=== PATIENT | male | born 1975 | race Caucasian/White ===

== ENCOUNTER 2016-12-27 10:33 | Emergency (ER) | payer SELFPAY ==
[~2016-12-27] VITALS: Ht 185.4 cm; Wt 185.0 kg
[~2016-12-27 10:33] MED LIST: CEPH500C3 PO; HYDR10SO PO; LITH300 PO
[2016-12-27 10:45] VITALS: BP 141/94; PULSE 104; RESP 20; TEMP 98; O2SAT 95
[2016-12-27 10:52] VITALS: BP 148/77; PULSE 105; RESP 18; O2SAT 97
--- NOTE | 2016-12-27 11:28 | PD ---
HPI Chief Complaint: Psychiatric Symptoms Time Seen by Provider: 11:25 Travel History International Travel<30 days: No Contact w/Intl Traveler<30days: No Traveled to known affect area: No History of Present Illness HPI 41-year-old male presents to the emergency Department a [place] act by local police. Apparently, the patient got into an argument with father. The police were called and the patient made comments about self-harm. Patient does admit to suicidal thoughts. He does not have a plan at this time. He states that in the past, he has overdosed on pills. He denies any attempt to hurt himself at this time. Patient states that he was drinking alcohol this morning, but will not tell me how much. He also admits to snorting cocaine. He denies any IVDU. Patient states that he feels alone and this brought and has no friends and no job. He would like to live a normal life, but cannot seem to get to that point. The patient reports a history of schizoaffective disorder. He states that he was on psychiatric medications approximately 2 years ago. He believes these were Zyprexa and lithium, but is not sure. He states he is not taking any medications at this time. He denies any other medical problems. He states he is also depressed about his recent weight gain. Patient denies any medical complaints at this time. PFSH Past Medical History Arthritis: Yes (HANDS) Asthma: No Autoimmune Disease: No Blood Disorders: No Bipolar Disorder: Yes Anxiety: Yes Depression: Yes Cancer: No Cardiovascular Problems: No Chemotherapy: No COPD: Yes Cerebrovascular Accident: No Diabetes: No Diminished Hearing: No Endocrine: No Gastrointestinal Disorders: No Glaucoma: No Genitourinary: No Headaches: Yes Immune Disorder: No Implanted Vascular Access Dvce: No Insomnia: Yes Kidney Stones: No Musculoskeletal: Yes Neurologic: No Psychiatric: Yes (schizoaffective disorder) Reproductive: No Respiratory: No Radiation Therapy: No Renal Failure: No Seizures: No Sleep Apnea: No Thyroid Disease: Yes (PT STATES " THEY TOLD ME I HAVE THYROID , I LOST 70 LBS. ") ?: Not Past Surgical History AICD: No Arteriovenous Shunt: No Ear Surgery: No Endocrine Surgery: No Eye Surgery: No Genitourinary Surgery: No Gynecologic Surgery: No Insulin Pump: No Joint Replacement: No Oral Surgery: No Pacemaker: No Other Surgery: No Social History Alcohol Use: Yes (Frequent drinker) Tobacco Use: Yes (1 ppd) Substance Use: Yes (+cocaine every so often) Allergies-Medications (Allergen,Severity, Reaction): Coded Allergies: No Known Allergies (Verified , 12/27/16) Reported Meds & Prescriptions Reported Meds & Active Scripts Active Review of Systems Except as stated in HPI: all other systems reviewed are Neg Physical Exam Narrative GENERAL: Well-nourished, well-developed obese male patient, afebrile. SKIN: Focused skin assessment warm/dry. HEAD: Normocephalic. Atraumatic. EYES: No scleral icterus. No injection or drainage. NECK: Supple, trachea midline. No JVD or lymphadenopathy. CARDIOVASCULAR: Regular rate and rhythm without murmurs, gallops, or rubs. RESPIRATORY: Breath sounds equal bilaterally. No accessory muscle use. Lungs sounds are clear to auscultation. GASTROINTESTINAL: Abdomen soft, non-tender, nondistended. MUSCULOSKELETAL: No cyanosis, or edema. PSYCHIATRIC: No delusional thought processes. No hallucinations. Data Data Last Documented VS Vital Signs Date Time Temp Pulse Resp B/P Pulse Ox O2 Delivery O2 Flow Rate FiO2 12/27/16 10:52 105 18 148/77 97 Room Air 12/27/16 10:45 98.0 Orders Complete Blood Count With Diff (12/27/16 11:24) Comprehensive Metabolic Panel (12/27/16 11:24) Psych Screen (12/27/16 11:24) Drug Screen, Random Urine (12/27/16 11:24) Alcohol (Ethanol) (12/27/16 11:24) Salicylates (Aspirin) (12/27/16 11:24) Tylenol (Acetaminophen) (12/27/16 11:24) Labs Laboratory Tests Test 12/27/16 11:25 White Blood Count 9.3 TH/MM3 Red Blood Count 5.27 MIL/MM3 Hemoglobin 15.7 GM/DL Hematocrit 43.9 % Mean Corpuscular Volume 83.4 FL Mean Corpuscular Hemoglobin 29.9 PG Mean Corpuscular Hemoglobin 35.8 % Concent Red Cell Distribution Width 13.1 % Platelet Count 192 TH/MM3 Mean Platelet Volume 10.0 FL Neutrophils (%) (Auto) % Lymphocytes (%) (Auto) % Monocytes (%) (Auto) % Eosinophils (%) (Auto) % Basophils (%) (Auto) % Neutrophils # (Auto) TH/MM3 Lymphocytes # (Auto) TH/MM3 Monocytes # (Auto) TH/MM3 Eosinophils # (Auto) TH/MM3 Basophils # (Auto) TH/MM3 CBC Comment AUTO DIFF Differential Total Cells 100 Counted Neutrophils % (Manual) 63 % Lymphocytes % 20 % Monocytes % 12 % Eosinophils % 5 % Neutrophils # (Manual) 5.9 TH/MM3 Differential Comment FINAL DIFF MANUAL Platelet Estimate NORMAL Platelet Morphology Comment NORMAL Red Cell Morphology Comment NORMAL Sodium Level 143 MEQ/L Potassium Level 4.0 MEQ/L Chloride Level 112 MEQ/L Carbon Dioxide Level 20.9 MEQ/L Anion Gap 10 MEQ/L Blood Urea Nitrogen 9 MG/DL Creatinine 0.72 MG/DL Estimat Glomerular Filtration 120 ML/MIN Rate Random Glucose 87 MG/DL Calcium Level 8.2 MG/DL Total Bilirubin 0.5 MG/DL Aspartate Amino Transf 16 U/L (AST/SGOT) Alanine Aminotransferase 23 U/L (ALT/SGPT) Alkaline Phosphatase 143 U/L Total Protein 6.8 GM/DL Albumin 3.4 GM/DL Salicylates Level LESS THAN 1.7 MG/DL Acetaminophen Level LESS THAN 2.0 MCG/ML Ethyl Alcohol Level 8 MG/DL [facility] Medical Decision Making Medical Screen Exam Complete: Yes Emergency Medical Condition: Yes Medical Record Reviewed: Yes Differential Diagnosis Schizoaffective disorder versus bipolar disorder versus substance abuse versus mood disorder versus electrolyte abnormality versus alcohol intoxication Narrative Course 41-year-old male presents to the emergency Department a [place] act by local police for suicidal ideation. CBC, CMP, alcohol level, urine drug screen, salicylate level, acetaminophen level are ordered and pending. CBC shows no acute abnormality. CMP shows no acute abnormality. Alcohol level is 8. UDS is pending. Acetaminophen level is less than 2.0. Salicylate level is less than 1.7. Patient is medically cleared for psychiatric screening and disposition. Mental health screening discussed with the patient. Psychiatric screen ordered. Diagnosis Primary Impression: Depression Qualified Code: F32.9 - Depression, unspecified depression type Additional Impression: Medical clearance for psychiatric admission Additional Instructions: Patient is medically cleared for psychiatric screening and disposition. Condition: Stable Rosemary Cohen BRIGID Dec 27, 2016 11:28
[2016-12-27 11:37] LABS: HEMATOCRIT 43.9 % (39.0-51.0); MEAN CELL VOLUME 83.4 FL (80.0-100.0); MEAN CORPUSCULAR HEMOGLOBIN 29.9 PG (27.0-34.0); MEAN CORPUSCULAR HGB CONC 35.8 % (32.0-36.0); PLATELET COUNT 192 TH/MM3 (150-450); RED BLOOD COUNT 5.27 MIL/MM3 (4.50-5.90); RED CELL DISTRIBUTION WIDTH 13.1 % (11.6-17.2); WHITE BLOOD COUNT 9.3 TH/MM3 (4.0-11.0)
[2016-12-27 11:38] LABS: HEMO FLAGS AUTO DIFF
[2016-12-27 11:54] LABS: ALT (GPT) 23 U/L (12-78); ANION GAP 10 MEQ/L (5-15); AST (GOT) 16 U/L (15-37); BICARBONATE 20.9 MEQ/L (21.0-32.0); BLOOD UREA NITROGEN 9 MG/DL (7-18); CHLORIDE 112 MEQ/L (98-107); GLOMERULAR FILTRATION RATE 120 ML/MIN (>89); SODIUM (NA) 143 MEQ/L (136-145)
[2016-12-27 11:56] LABS: ACETAMINOPHEN LESS THAN 2.0 MCG/ML (10.0-30.0); ALKALINE PHOSPHATASE 143 U/L (45-117); TOTAL BILIRUBIN ADULT 0.5 MG/DL (0.2-1.0)
[2016-12-27 12:08] LABS: EOSINOPHILS 5 % (0-4); NEUTROPHIL # MANUAL DIFF 5.9 TH/MM3 (1.8-7.7); PLATELET ESTIMATE SMEAR NORMAL (NORMAL); PLATELET MORPHOLOGY NORMAL (NORMAL); POLYS (SEG NEUTROPHILS) 63 % (16-70); SCAN/DIFF FINAL DIFF MANUAL; WBC DIFF SAMPLE 100
[2016-12-27 13:05] LABS: AMPHETAMINE, URINE NEG (NEG); BARBITURATES, URINE NEG (NEG); COCAINE, URINE POS (NEG)
[2016-12-27 13:48] VITALS: BP 112/61; PULSE 102; RESP 18; O2SAT 94
[2016-12-27 17:00] VITALS: BP 114/69
[2016-12-27 17:59] VITALS: BP 121/85; PULSE 94; RESP 18; O2SAT 94
[2016-12-27 22:00] VITALS: BP 111/58; PULSE 80; RESP 18
== END 2016-12-28 06:44 ==
LOC: NEPC 10:33 → NEPJ 12-28 06:44
DX: F32.9 Major depressive disorder, single episode, unspecified (principal); J44.9 Chronic obstructive pulmonary disease, unspecified; F25.9 Schizoaffective disorder, unspecified; E07.9 Disorder of thyroid, unspecified; F17.210 Nicotine dependence, cigarettes, uncomplicated
CPT/HCPCS: 80053; 80307; 85007; 85027; 99283

== ENCOUNTER 2017-07-13 11:48 | Inpatient (IN) | payer SELFPAY ==
[2017-07-13] MEDS: IOHEXOL 350 MG/ML 10 ML VIAL (for RAD DIAG) IVCONTRAST (11:49)
[2017-07-13] MEDS: ONDANSETRON HCL 4 MG/2 ML VIAL IVP (12:47)
[2017-07-13] MEDS: SODIUM CHLOR 0.9% 1000 ML INJ 1,000 ML IV ×2 (12:47→17:43)
[2017-07-13] MEDS: MORPHINE SULFATE 2 MG/ML INJ IV PUSH ×2 (12:48→17:31)
[2017-07-13 13:11] LABS: AUTOMATED NEUTROPHIL # 7.5 TH/MM3 (1.8-7.7); BASOPHIL # 0.1 TH/MM3 (0-0.2); BASOPHIL % 0.4 % (0.0-2.0); EOSINOPHIL # 0.4 TH/MM3 (0-0.4); EOSINOPHIL % 2.9 % (0.0-4.0); HEMATOCRIT 47.4 % (39.0-51.0); HEMO FLAGS DIFF FINAL; HEMOGLOBIN 16.4 GM/DL (13.0-17.0); LYMPH % 27.7 % (9.0-44.0); LYMPHOCYTE # 3.5 TH/MM3 (1.0-4.8); MEAN CELL VOLUME 84.5 FL (80.0-100.0); MEAN CORPUSCULAR HEMOGLOBIN 29.3 PG (27.0-34.0); MEAN CORPUSCULAR HGB CONC 34.7 % (32.0-36.0); MEAN PLATELET VOLUME 9.8 FL (7.0-11.0); MONO % 9.7 % (0.0-8.0); MONOCYTE # 1.2 TH/MM3 (0-0.9); NEUT % 59.3 % (16.0-70.0); PLATELET COUNT 236 TH/MM3 (150-450); RED BLOOD COUNT 5.61 MIL/MM3 (4.50-5.90); RED CELL DISTRIBUTION WIDTH 13.6 % (11.6-17.2); WHITE BLOOD COUNT 12.6 TH/MM3 (4.0-11.0)
[2017-07-13 13:14] LABS: LACTIC ACID 1.8 mmol/L (0.4-2.0)
[2017-07-13 13:22] LABS: ALBUMIN 3.9 GM/DL (3.4-5.0); ANION GAP 10 MEQ/L (5-15); AST (GOT) 10 U/L (15-37); BICARBONATE 21.2 MEQ/L (21.0-32.0); BLOOD UREA NITROGEN 10 MG/DL (7-18); CHLORIDE 110 MEQ/L (98-107); CREATININE 0.85 MG/DL (0.60-1.30); GLOMERULAR FILTRATION RATE 99 ML/MIN (>89); GLUCOSE,RANDOM 122 MG/DL (74-106); LIPASE 57 U/L (73-393); POTASSIUM 3.9 MEQ/L (3.5-5.1); SODIUM (NA) 141 MEQ/L (136-145)
[2017-07-13 13:23] LABS: ALT (GPT) 23 U/L (12-78)
[2017-07-13 13:25] LABS: ALKALINE PHOSPHATASE 162 U/L (45-117); TOTAL BILIRUBIN ADULT 0.7 MG/DL (0.2-1.0); TOTAL PROTEIN 7.3 GM/DL (6.4-8.2)
[2017-07-13] MEDS ORDERED: MORPHINE SULFATE 2 MG/ML INJ IV PUSH (15:30)
[2017-07-13] MEDS ORDERED: HYDROmorphone HCL PF 1 MG/ML VIAL IV PUSH (15:30)
[2017-07-13] MEDS: PIPERACIL-TAZO 3.375 GM PREMIX 50 ML IV ×2 (15:42→21:41)
[2017-07-13] MEDS: LORazepam 2 MG/ML VIAL IV PUSH ×2 (15:42→21:40)
[2017-07-13] MEDS: HYDROmorphone HCL PF 2 MG/ML VIAL IV (15:49)
[2017-07-13] MEDS ORDERED: ONDANSETRON HCL 4 MG/2 ML VIAL IVP (16:15)
[2017-07-13] MEDS ORDERED: NALOXONE HCL 0.4 MG/ML AMP IV PUSH (16:15)
[2017-07-13 16:29] LABS: APTT (PATIENT) 27.6 SEC (24.3-30.1); INTERNATIONAL NORMALIZED RATIO 1.1 RATIO; PROTHROMBIN TIME - PATIENT 10.7 SEC (9.8-11.6)
[2017-07-13] MEDS: HYDROmorphone HCL PF 2 MG/ML VIAL IV PUSH (21:41)
[2017-07-13] MEDS: SODIUM CHLORIDE 0.9% FLUSH 10 ML FLUSH IV FLUSH (21:42)
[2017-07-14] MEDS: HYDROmorphone HCL PF 2 MG/ML VIAL IV PUSH ×5 (02:29→23:33)
[2017-07-14] MEDS: LORazepam 2 MG/ML VIAL IV PUSH ×5 (02:30→23:34)
[2017-07-14] MEDS: PIPERACIL-TAZO 3.375 GM PREMIX 50 ML IV ×4 (04:12→21:35)
[2017-07-14] MEDS: SODIUM CHLOR 0.9% 1000 ML INJ 1,000 ML IV ×3 (04:29→21:35)
[2017-07-14] MEDS ORDERED: CHLORHEXIDINE GLUCONATE 2 % 1 PACK (2 CLOTHS) TOPICAL (05:15)
[2017-07-14] MEDS ORDERED: SODIUM CHLORID 0.9% 500 ML IV (05:15)
[2017-07-14] MEDS ORDERED: POVIDONE IODINE 5% (ANTISEPSIS KIT) 4 APPLICATIONS EACH NARE (05:15)
[2017-07-14] MEDS: LACTATED RINGER'S 1000 ML IV (06:20)
[2017-07-14] MEDS: BUPIVACAINE/EPINEPHRINE 0.25% 50 ML VIAL (07:21)
[2017-07-14] MEDS: MIDAZOLAM HCL 2 MG/2 ML VIAL (08:56)
[2017-07-14] MEDS: *RESP: ALBUTEROL 2.5 MG/3 ML NEB (PRN) PERIprocedural Use ONLY NEB (08:56)
[2017-07-14] MEDS: SODIUM CHLORIDE 0.9% FLUSH 10 ML FLUSH IV FLUSH ×2 (09:00→21:00)
[2017-07-14] MEDS: *morphine SULFATE 10 MG/ML PERIprocedure ONLY (09:05)
[2017-07-14] MEDS: *diphenhydrAMINE HCL 50 MG/ML VIAL PERIprocedural Use ONLY (09:10)
[2017-07-14] MEDS: *ONDANSETRON 4 MG VIAL PERIprocedural Use ONLY (09:10)
[2017-07-14] MEDS ORDERED: DO NOT ADM ANY ANTICOAGULANT DRUGS (09:15)
[2017-07-14] MEDS: PNEUMOCOCCAL POLYVALENT INJ 25 MCG/0.5 ML SYR IM (10:08)
[2017-07-14] MEDS ORDERED: PROPOFOL 200 MG/20 ML AMP IV (12:00)
[2017-07-14] MEDS ORDERED: GLYCOPYRROLATE 1 MG/5 ML SYRINGE IV PUSH (12:00)
[2017-07-14] MEDS ORDERED: ROCURONIUM INJ 50 MG/5 ML SYRINGE IV PUSH (12:00)
[2017-07-14] MEDS ORDERED: NEOSTIGMINE 5 MG/5 ML SYRINGE IV PUSH (12:00)
[2017-07-14] MEDS ORDERED: ONDANSETRON HCL 4 MG/2 ML VIAL IV (12:00)
[2017-07-14] MEDS ORDERED: LIDOCAINE HCL 1% PF 5 ML SYRINGE OTHER (12:00)
[2017-07-14] MEDS ORDERED: DEXAMETHASONE SOD PHOS 4 MG/ML VIAL IV (12:00)
[2017-07-14] MEDS ORDERED: KETOROLAC TROMETHAMINE 30 MG/ML (IVP) VIAL IV PUSH (12:00)
[2017-07-14 15:43] LABS: AUTOMATED NEUTROPHIL # 12.7 TH/MM3 (1.8-7.7); BASOPHIL # 0.1 TH/MM3 (0-0.2); BASOPHIL % 0.4 % (0.0-2.0); HEMATOCRIT 43.4 % (39.0-51.0); HEMO FLAGS DIFF FINAL; HEMOGLOBIN 14.7 GM/DL (13.0-17.0); LYMPH % 3.4 % (9.0-44.0); LYMPHOCYTE # 0.5 TH/MM3 (1.0-4.8); MEAN CELL VOLUME 86.3 FL (80.0-100.0); MEAN CORPUSCULAR HEMOGLOBIN 29.1 PG (27.0-34.0); MEAN CORPUSCULAR HGB CONC 33.8 % (32.0-36.0); MEAN PLATELET VOLUME 10.1 FL (7.0-11.0); MONO % 5.3 % (0.0-8.0); MONOCYTE # 0.7 TH/MM3 (0-0.9); NEUT % 90.9 % (16.0-70.0); PLATELET COUNT 198 TH/MM3 (150-450); RED BLOOD COUNT 5.03 MIL/MM3 (4.50-5.90); RED CELL DISTRIBUTION WIDTH 13.4 % (11.6-17.2)
[2017-07-14 16:19] LABS: ALBUMIN 3.5 GM/DL (3.4-5.0); ALKALINE PHOSPHATASE 124 U/L (45-117); ALT (GPT) 55 U/L (12-78); ANION GAP 10 MEQ/L (5-15); AST (GOT) 36 U/L (15-37); BLOOD UREA NITROGEN 9 MG/DL (7-18); CALCIUM 8.5 MG/DL (8.5-10.1); CHLORIDE 107 MEQ/L (98-107); CREATININE 0.92 MG/DL (0.60-1.30); GLOMERULAR FILTRATION RATE 90 ML/MIN (>89); GLUCOSE,RANDOM 143 MG/DL (74-106); SODIUM (NA) 138 MEQ/L (136-145); TOTAL BILIRUBIN ADULT 1.5 MG/DL (0.2-1.0); TOTAL PROTEIN 7.2 GM/DL (6.4-8.2)
[2017-07-14] MEDS: NICOTINE 14 MG/24 HR PATCH T-DERMAL (17:51)
[2017-07-14] MEDS: REMOVE OLD NICODERM (NICOTINE) PATCH T-DERMAL (21:40)
[2017-07-15] MEDS: HYDROmorphone HCL PF 2 MG/ML VIAL IV PUSH ×3 (04:04→13:56)
[2017-07-15] MEDS: PIPERACIL-TAZO 3.375 GM PREMIX 50 ML IV ×3 (04:04→16:00)
[2017-07-15] MEDS: LORazepam 2 MG/ML VIAL IV PUSH ×3 (04:04→13:56)
[2017-07-15] MEDS: SODIUM CHLOR 0.9% 1000 ML INJ 1,000 ML IV (08:00)
[2017-07-15] MEDS: SODIUM CHLORIDE 0.9% FLUSH 10 ML FLUSH IV FLUSH ×2 (09:00→13:57)
[2017-07-15] MEDS: NICOTINE 14 MG/24 HR PATCH T-DERMAL (09:05)
[2017-07-15 09:43] LABS: AUTOMATED NEUTROPHIL # 11.6 TH/MM3 (1.8-7.7); BASOPHIL # 0.1 TH/MM3 (0-0.2); BASOPHIL % 0.6 % (0.0-2.0); EOSINOPHIL # 0.1 TH/MM3 (0-0.4); EOSINOPHIL % 0.6 % (0.0-4.0); HEMATOCRIT 41.6 % (39.0-51.0); HEMO FLAGS DIFF FINAL; HEMOGLOBIN 14.4 GM/DL (13.0-17.0); LYMPH % 12.6 % (9.0-44.0); LYMPHOCYTE # 1.9 TH/MM3 (1.0-4.8); MEAN CELL VOLUME 84.4 FL (80.0-100.0); MEAN CORPUSCULAR HEMOGLOBIN 29.3 PG (27.0-34.0); MEAN CORPUSCULAR HGB CONC 34.6 % (32.0-36.0); MEAN PLATELET VOLUME 10.1 FL (7.0-11.0); MONO % 9.2 % (0.0-8.0); MONOCYTE # 1.4 TH/MM3 (0-0.9); PLATELET COUNT 217 TH/MM3 (150-450); RED BLOOD COUNT 4.92 MIL/MM3 (4.50-5.90); RED CELL DISTRIBUTION WIDTH 13.6 % (11.6-17.2); WHITE BLOOD COUNT 15.1 TH/MM3 (4.0-11.0)
[2017-07-15 09:50] LABS: ANION GAP 9 MEQ/L (5-15); BICARBONATE 21.7 MEQ/L (21.0-32.0); BLOOD UREA NITROGEN 4 MG/DL (7-18); CALCIUM 8.9 MG/DL (8.5-10.1); CHLORIDE 107 MEQ/L (98-107); CREATININE 0.77 MG/DL (0.60-1.30); GLOMERULAR FILTRATION RATE 111 ML/MIN (>89); GLUCOSE,RANDOM 103 MG/DL (74-106); POTASSIUM 3.9 MEQ/L (3.5-5.1); SODIUM (NA) 138 MEQ/L (136-145)
== END 2017-07-15 17:10 | disposition home or self-care (01) | DRG 418 ==
LOC: NEPE 11:48 → NEDA 16:01 → N05A 16:45
PROC: 0FT44ZZ Resection of Gallbladder, Percutaneous Endoscopic Approach (ICD-10-PCS; principal; 2017-07-14 06:50)
DX: K80.00 Calculus of gallbladder with acute cholecystitis without obstruction (principal); Z68.43 Body mass index [BMI] 50.0-59.9, adult; K76.0 Fatty (change of) liver, not elsewhere classified; F31.60 Bipolar disorder, current episode mixed, unspecified; I10 Essential (primary) hypertension; F17.210 Nicotine dependence, cigarettes, uncomplicated; J44.9 Chronic obstructive pulmonary disease, unspecified; E66.01 Morbid (severe) obesity due to excess calories; F41.9 Anxiety disorder, unspecified; F25.9 Schizoaffective disorder, unspecified; M19.90 Unspecified osteoarthritis, unspecified site; Z87.820 Personal history of traumatic brain injury; Z91.14 Patient's other noncompliance with medication regimen; Z23 Encounter for immunization
CPT/HCPCS: 71045; 74177; 76775; 80048; 80053; 83605; 83690; 85025; 85610; 85730; 88304; 90732; 94664; 96374; 96375; 97163-GP; 99285-25